=== PATIENT | male | born 1995 | race Two or more races ===

== ENCOUNTER 2024-11-24 14:39 | Emergency (ER) | payer MEDICAID ==
[~2024-11-24] VITALS: Ht 170.2 cm; Wt 100.0 kg
[2024-11-24 15:02] VITALS: TEMP 98.6
[2024-11-24] MEDS: IBUPROFEN 600 MG TABLET PO ONE (17:16)
[2024-11-24] MEDS: HYDROCODONE/ACETAMINOPHEN 5-325 MG TABLET PO ONE (17:16)
[2024-11-24] MEDS: PERTUSS(ACELL),DIPH,TET/PF 0.5 ML SYRINGE [ADULT] IM. ONE (17:17)
[2024-11-24 17:45] VITALS: BP 140/85; PULSE 86; RESP 18; O2SAT 99
[2024-11-24] MEDS ORDERED: HYDR-4062 PO (17:52)
[2024-11-24] MEDS ORDERED: IBUP-1554 PO (17:52)
== END 2024-11-24 18:15 | disposition home or self-care (01) ==
LOC: EMS 14:39
DX: S90.01XA Contusion of right ankle, initial encounter (principal); S90.31XA Contusion of right foot, initial encounter; S90.811A Abrasion, right foot, initial encounter; Z79.899 Other long term (current) drug therapy; W20.8XXA Other cause of strike by thrown, projected or falling object, initial encounter; Y93.89 Activity, other specified; Y92.89 Other specified places as the place of occurrence of the external cause; Y99.8 Other external cause status
CPT/HCPCS: 90471; 90715; 99284